=== PATIENT | male | born 1995 | race Caucasian/White ===

== ENCOUNTER 2022-09-14 13:11 | Emergency (ER) | payer MEDICAID, OTHER ==
[~2022-09-14] VITALS: Ht 172.7 cm; Wt 69.4 kg
[2022-09-14 13:42] VITALS: BP_SYST 121; PULSE 89; RESP 18; TEMP 98.7; O2SAT 98
--- NOTE | 2022-09-14 13:55 | NUR ---
MD DR BEAL AT BEDSIDE
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
[2022-09-14] MEDS ORDERED: TRAM50TA2 PO (14:58)
[2022-09-14 16:29] VITALS: BP_SYST 121; PULSE 89; RESP 18; TEMP 98.7; O2SAT 98
--- NOTE | 2022-09-14 16:30 | NUR ---
Patient given written and verbal discharge instructions and verbalizes understanding. ER MD DR BEAL discussed with patient the results and treatment provided. Patient in stable condition. ID arm band removed. Rx of TRAMADOL 50MG given. Patient educated on pain management and to follow up with PMD. Pain Scale . Opportunity for questions provided and answered. Medication side effect fact sheet provided.
== END 2022-09-14 16:30 | disposition home or self-care (01) ==
LOC: SED 13:11
DX: S52.201A Unspecified fracture of shaft of right ulna, initial encounter for closed fracture (principal); Z79.899 Other long term (current) drug therapy; Y04.0XXA Assault by unarmed brawl or fight, initial encounter; Y93.89 Activity, other specified; Y92.89 Other specified places as the place of occurrence of the external cause; Y99.8 Other external cause status
CPT/HCPCS: 73090; 99283

== ENCOUNTER 2022-09-25 12:28 | Emergency (ER) | payer MEDICAID ==
[~2022-09-25] VITALS: Ht 170.2 cm; Wt 66.2 kg
[~2022-09-25 12:28] MED LIST: TRAM50TA2 PO
[2022-09-25 12:41] VITALS: BP_SYST 124; PULSE 93; RESP 18; TEMP 98.1; O2SAT 97
--- NOTE | 2022-09-25 13:55 | NUR ---
Patient to ER bed 07 to gown for evaluation. Side rails up.
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
[2022-09-25] MEDS ORDERED: IBUP-1969 PO (14:19)
--- NOTE | 2022-09-25 14:30 | NUR ---
Dr Garland evaluating patient at bedside
--- NOTE | 2022-09-25 15:21 | NUR ---
Patient given written and verbal discharge instructions and verbalizes understanding. ER MD discussed with patient the results and treatment provided. Patient in stable condition. ID arm band removed. Rx of Ibuprofen given. Patient educated on pain management and to follow up with PMD. Pain Scale 3/10 . Opportunity for questions provided and answered. Medication side effect fact sheet provided.
[2022-09-25 15:24] VITALS: BP_SYST 124; PULSE 93; RESP 18; TEMP 98.1; O2SAT 97
== END 2022-09-25 15:21 | disposition home or self-care (01) ==
LOC: SED 12:28
DX: S52.691A Other fracture of lower end of right ulna, initial encounter for closed fracture (principal); Z79.899 Other long term (current) drug therapy; X58.XXXA Exposure to other specified factors, initial encounter; Y93.89 Activity, other specified; Y92.89 Other specified places as the place of occurrence of the external cause; Y99.8 Other external cause status
CPT/HCPCS: 99283